=== PATIENT | male | born 1975 ===

== ENCOUNTER 2016-11-07 16:14 | Emergency (ER) | payer OTHER ==
[2016-11-07 16:21] VITALS: BMI 27.1
[2016-11-07] MEDS ORDERED: Morphine 4 mg/ml ISec IM STA (16:23)
[2016-11-07] MEDS ORDERED: Morphine 4 mg/ml ISec ONE (16:26)
[2016-11-07 16:30] VITALS: TEMP 98.5; O2SAT 100
--- NOTE | 2016-11-07 16:30 | ED PDOC ---
Arrival/HPI - General Chief Complaint: Groin Pain Time Seen by Provider: 11/07/16 16:15 Historian: Patient - History of Present Illness Narrative History of Present Illness (Text): 11/07/16 16:27 40 y/o male, no significant pmh, nkda, surgical history including hemorrhoidectomy, c/o lt. testicule pain and swelling started yesterday with no fall or trauma. Aching pain, swelling, painful to walk and standing, no numbness or tingling, no night sweat, no palpitation, was feeling nauseous when the pain is severe, no urinary symptoms, no night sweat, no urinary symptoms, no palpitation, no other medical or psychological complaints. Pt. stated that he has 5 sexual partners with occasionally no condoms for the past 12 months. Past Medical History - Provider Review Nursing Documentation Reviewed: Yes - Infectious Disease Hx of Infectious Diseases: None - Psychiatric Hx Substance Use: No - Surgical History Other/Comment: hemorrhoids removed. - Anesthesia Hx Anesthesia: Yes Hx Anesthesia Reactions: No Family/Social History - Physician Review Nursing Documentation Reviewed: Yes Family/Social History: Unknown Family HX Smoking Status: Light Smoker < 10 Cigarettes Daily Hx Alcohol Use: No Hx Substance Use: No Allergies/Home Meds Allergies/Adverse Reactions: Allergies shellfish derived Allergy (Verified 11/07/16 16:21) ANAPHYLAXIS Review of Systems - Review of Systems Constitutional: absent: Fatigue, Fevers Eyes: absent: Vision Changes ENT: absent: Hearing Changes Respiratory: absent: SOB, Cough Cardiovascular: absent: Chest Pain Gastrointestinal: absent: Abdominal Pain, Diarrhea, Nausea, Vomiting Musculoskeletal: absent: Arthralgias, Back Pain Skin: absent: Rash, Pruritis Neurological: absent: Headache, Dizziness Physical Exam Vital Signs Temp Pulse Resp BP Pulse Ox 11/07/16 16:29 98.5 F 92 H 18 146/94 H 100 - Systems Exam Head: Present: Atraumatic, Normocephalic Pupils: Present: PERRL Extroacular Muscles: Present: EOMI Conjunctiva: Present: Normal Mouth: Present: Moist Mucous Membranes Neck: Present: Normal Range of Motion Respiratory/Chest: Present: Clear to Auscultation, Good Air Exchange. No: Respiratory Distress, Accessory Muscle Use Cardiovascular: Present: Regular Rate and Rhythm, Normal S1, S2. No: Murmurs Abdomen: Present: Normal Bowel Sounds. No: Tenderness, Distention, Peritoneal Signs, Rebound, Guarding Genitourinary Male: Present: Normal External Genitalia, Testicle Tenderness ( left with swelling and saggy), Testicle Swelling (left with swelling and saggy) . No: Lesions, Penile Discharge, Penile Swelling, Erythema, Hernias Back: Present: Normal Inspection Upper Extremity: Present: Normal Inspection. No: Cyanosis, Edema Lower Extremity: Present: Normal Inspection. No: Edema Neurological: Present: GCS=15, CN II-XII Intact, Speech Normal Skin: Present: Warm, Dry, Normal Color. No: Rashes Psychiatric: Present: Alert, Oriented x 3, Normal Insight, Normal Concentration Medical Decision Making ED Course and Treatment: 11/07/16 16:29 -morphine 4mg IM -testicular sonogram -labs/IV 11/07/16 17:54 -Sonogram: -left epididymo-orchitis. -Small bilateral hydroceles. -Right-sided varicocele. -Case and treatment discussed with DR. Miramontes, he agreed on the treatment and dispo plan. -Pt. is very sexually active: rocephine 250mg IM, azithromycin 1gm po ordered. -labs/ua/gc/chlamydia test ordered. -Due to the patient's significant extensive sexual history, will put the patient on the doxy and cipro due to the fact there is leukocyte esterase in the urine and cover typical urine pathogen. 11/07/16 18:25 -Labs are non-significant except wbc 16.2, UA +leukocyte esterase, doxycyline and ciprofloxacin ordered. -I offered admission but the patient refused and declined to be admitted, request to have outpatient follow up with Dr. Cabrera. -I discussed the case with Dr. Krystal Cabrera including labs/radiology results, discussed about the plan of care and suggest the patient to call him madhavi after leave his office with him as he will see the patient tonight. -I discussed about the side effect of doxycyline and ciprofloxacin including possible achilles tendon rupture and should avoid gym/strenuous exercise or activities, pt. is awared and agreed to accept these risks. -Discharge home with doxycycline, ciprofloxacin (avoid gym and exercise while taking this medication), estela, call Dr. Krystal hendrickson on his cellphone as he will see you tonight, bed rest, avoid standing or running, follow up with your own pmd and urologist within 2 days, no sex for 1 week, return to the ER for any new or worsening signs or symptoms. - Lab Interpretations Lab Results: 11/07/16 17:30 11/07/16 17:30 Lab Results 11/07/16 17:30: Urine Color Yellow, Urine Appearance Sl cloudy, Urine pH 8.5, Ur Specific [place] 1.015, Urine Protein 30 H, Urine Glucose (UA) Negative, Urine Ketones Negative, Urine Blood Negative, Urine Nitrate Negative, Urine Bilirubin Negative, Urine Urobilinogen 0.2, Ur Leukocyte Esterase Trace H, Urine RBC Negative, Urine WBC 15 - 20, Ur Epithelial Cells 6 - 8, Urine Bacteria Mod 11/07/16 17:30: WBC 16.2 H, RBC 4.88, Hgb 13.4 L, Hct 39.2 L, MCV 80.3, MCH 27.5 , MCHC 34.2, RDW 13.5, Plt Count 242, MPV 9.8, Gran % 80.1 H, Lymph % (Auto) 9.7 L, [place] % (Auto) 9.9 H, Eos % (Auto) 0.2 L, Baso % (Auto) 0.1, Gran # 12.97 H, Lymph # 1.6, [place] # 1.6 H, Eos # 0.0, Baso # 0.01 11/07/16 17:30: Sodium 136, Potassium 3.8, Chloride 98, Carbon Dioxide 28, Anion Gap 14, BUN 17, Creatinine 0.7, Est GFR ( Amer) > 60, Est GFR (Non- Af Amer) > 60, Random Glucose 127 H, Calcium 9.0, Total Bilirubin 1.0, AST 35, ALT 34, Alkaline Phosphatase 106, Total Protein 8.5 H, Albumin 4.5, Globulin 4.0 , Albumin/Globulin Ratio 1.1 I have reviewed the lab results: Yes Interpretation: Abnormal lab values (wbc 16.2, UA +leukocyte esterase) - RAD Interpretation Radiology Orders: 11/07/16 16:23 TESTES DUPLEX COMPLETE [US] Stat HISTORY: lt. scrotum pain and swelling started yesterday TECHNIQUE: Realtime sonography through the scrotum with color and doppler flow. COMPARISON: None Available. FINDINGS: RIGHT TESTICLE: Measures 4.0 x 2.5 x 2.8 cm. Homogeneous echotexture. Blood flow is demonstrated. RIGHT EPIDIDYMIS: Unremarkable. LEFT TESTICLE: Measures 5.0 x 3.5 x 3.3 cm. Minimally heterogeneous echotexture. Hypervascular appearance. LEFT EPIDIDYMIS: Heterogeneous enlarged appearance. Hypervascularity. HYDROCELE: Small bilateral hydroceles. VARICOCELE: Right-sided varicocele. OTHER FINDINGS: None. IMPRESSION: Appearance consistent with left epididymo-orchitis. Correlate clinically. Small bilateral hydroceles. Right-sided varicocele. 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 - Medication Orders Current Medication Orders: Discontinued Medications Azithromycin (Zithromax) 1,000 mg PO STAT STA PRN Reason: Protocol Stop: 11/07/16 17:06 Last Admin: 11/07/16 17:36 Dose: 1,000 mg Ceftriaxone Sodium (Rocephin) 250 mg IM STAT STA PRN Reason: Protocol Stop: 11/07/16 17:06 Last Admin: 11/07/16 17:36 Dose: 250 mg IM Administration Charges Document 11/07/16 17:36 HI (Rec: 11/07/16 17:36 [facility] Injection Site MAR Injection Site Right Gluteus Gerry Charges for Administration # of IM Administrations 1 Ciprofloxacin (Cipro) 500 mg PO ONCE STA PRN Reason: Protocol Stop: 11/07/16 17:52 Last Admin: 11/07/16 18:14 Dose: 500 mg Doxycycline Hyclate (Doryx) 100 mg PO STAT STA PRN Reason: Protocol Stop: 11/07/16 17:52 Last Admin: 11/07/16 18:14 Dose: 100 mg Sodium Chloride (Sodium Chloride 0.9%) 1,000 mls @ 999 mls/hr IV .Q1H1M STA Stop: 11/07/16 18:06 Last Admin: 11/07/16 17:36 Dose: 999 mls/hr eMAR Start Stop Document 11/07/16 17:36 HI (Rec: 11/07/16 17:36 [facility] Intravenous Solution Start Date 11/07/16 Start Time 17:36 Ketorolac Tromethamine (Toradol) 30 mg IVP STAT STA Stop: 11/07/16 17:07 Last Admin: 11/07/16 17:36 Dose: 30 mg MAR Pain Assessment Document 11/07/16 17:36 HI (Rec: 11/07/16 17:36 [email or web address] Pain Reassessment Is this a pain reassessment? Yes Sleep Is patient sleeping during reassessment? No Presence of Pain Presence of Pain Yes Pain Scale Used Pain Scale Used Numeric Location Pain Location Body Site Groin Description Description Constant Pain Behavior Moaning Grasping Site Restlessness Facial Grimacing IVP Administration Document 11/07/16 17:36 HI (Rec: 11/07/16 17:36 [email or web address] Charges for Administration # of IVP Administrations 1 Morphine Sulfate (Morphine) 4 mg IM STAT STA Stop: 11/07/16 16:24 Last Admin: 11/07/16 16:30 Dose: 4 mg MAR Pain Assessment Document 11/07/16 16:30 HI (Rec: 11/07/16 16:30 [facility]) Pain Reassessment Is this a pain reassessment? No Sleep Is patient sleeping during reassessment? No Presence of Pain Presence of Pain Yes Pain Scale Used Pain Scale Used Numeric Location Left, Right or Bilateral Left Pain Location Body Site Groin Description Description Sharp Intensity of Pain at present 10 Pain Behavior Moaning Grasping Site Facial Grimacing Thrashing IM Administration Charges Document 11/07/16 16:30 HI (Rec: 11/07/16 16:30 [email or web address]) Injection Site MAR Injection Site Right Deltoid Charges for Administration # of IM Administrations 1 Re-Assess: MAR Pain Assessment Document 11/07/16 17:30 HI (Rec: 11/07/16 17:37 [email or web address]) Pain Reassessment Is this a pain reassessment? Yes Sleep Is patient sleeping during reassessment? No Presence of Pain Presence of Pain Yes Location Pain Location Body Site Groin - PA / QUALITY COMPLIANCE CONSULTANT / Resident Statement MD/DO has reviewed & agrees with the documentation as recorded. Disposition/Present on Arrival - Present on Arrival Any Indicators Present on Arrival: No History of DVT/PE: No History of Uncontrolled Diabetes: No Urinary Catheter: No History of Decub. Ulcer: No History Surgical Site Infection Following: None - Disposition Have Diagnosis and Disposition been Completed?: Yes Diagnosis: Varicocele, Hydrocele, Epididymo-orchitis, acute, UTI (urinary tract infection) Disposition: HOME/ ROUTINE Disposition Time: 17:59 Patient Plan: Discharge Patient Problems: Current Active Problems Problem Status Onset Epididymo-orchitis, acute Acute Hydrocele Acute UTI (urinary tract infection) Acute Varicocele Acute Condition: IMPROVED Additional Instructions: -Discharge home with doxycycline, ciprofloxacin (avoid gym and exercise while taking this medication), motrin, call Dr. Krystal hendrickson on his cellphone as he will see you madhavi, bed rest, avoid standing or running, follow up with your own pmd and urologist within 2 days, no sex for 1 week, return to the ER for any new or worsening signs or symptoms. Prescriptions: Ciprofloxacin/Ciprofloxa HCl [Ciprofloxacin] 500 mg PO BID #20 tab Doxycycline Hyclate 100 mg PO BID #16 cap Ibuprofen [Motrin Tab] 800 mg PO TID PRN #21 tab PRN Reason: Other Referrals: Haley Szymanski, [Primary Care Provider] - Follow up with primary Rosalio Cabrera MD [Staff Provider] - Follow up with primary Forms: [facility] [employer] [facility] (Wallisian), WORK NOTE
[2016-11-07] MEDS ORDERED: cefTRIAXone (Rocephin) 250 mg Inj IM STA (17:05)
[2016-11-07] MEDS ORDERED: Sodium Chloride 0.9% 1,000 ML IV STA (17:06)
--- NOTE | 2016-11-07 17:10 | US ---
HISTORY: lt. scrotum pain and swelling started yesterday TECHNIQUE: Realtime sonography through the scrotum with color and doppler flow. COMPARISON: None Available. FINDINGS: RIGHT TESTICLE: Measures 4.0 x 2.5 x 2.8 cm. Homogeneous echotexture. Blood flow is demonstrated. RIGHT EPIDIDYMIS: Unremarkable. LEFT TESTICLE: Measures 5.0 x 3.5 x 3.3 cm. Minimally heterogeneous echotexture. Hypervascular appearance. LEFT EPIDIDYMIS: Heterogeneous enlarged appearance. Hypervascularity. HYDROCELE: Small bilateral hydroceles. VARICOCELE: Right-sided varicocele. OTHER FINDINGS: None. IMPRESSION: Appearance consistent with left epididymo-orchitis. Correlate clinically. Small bilateral hydroceles. Right-sided varicocele.
[2016-11-07 17:45] LABS: PH,URINE 8.5 (4.7-8.0); URINE BILIRUBIN NEGATIVE (NEGATIVE); URINE BLOOD NEGATIVE (NEGATIVE); URINE GLUCOSE (UA) NEGATIVE (NEGATIVE); URINE KETONE NEGATIVE (NEGATIVE); URINE LEUKOCYTE ESTERASE TRACE Leu/uL (NEGATIVE); URINE PROTEIN 30 mg/dL (<30 mg/dL); URINE UROBILINOGEN 0.2 E.U./dL (<1 E.U./dL)
[2016-11-07 17:52] LABS: BASO # 0.01 K/mm3 (0.0-2.0); BASO % 0.1 % (0.0-3.0); EOS % 0.2 % (1.5-5.0); GRAN # 12.97 (1.4-6.5); GRAN % 80.1 % (50.0-68.0); HEMATOCRIT 39.2 % (42.0-52.0); LYMPH # 1.6 (1.2-3.4); LYMPH % 9.7 % (22.0-35.0); MEAN CELL VOLUME 80.3 fl (80.0-105.0); MEAN CORPUSCULAR HEMOGLOBIN 27.5 pg (25.0-35.0); MEAN CORPUSCULAR HGB CONC 34.2 g/dl (31.0-37.0); MEAN PLATELET VOLUME 9.8 fl (7.0-11.0); MONO # 1.6 (0.1-0.6); MONO % 9.9 % (1.0-6.0); RED CELL DISTRIBUTION WIDTH 13.5 % (11.5-14.5); URINE APPEARANCE SL CLOUDY (CLEAR); URINE COLOR YELLOW (YELLOW); WHITE BLOOD COUNT 16.2 10^3/ul (4.5-11.0)
[2016-11-07 17:56] LABS: ALB/GLOB RATIO 1.1 (1.1-1.8); ALKALINE PHOSPHATASE 106 U/L (38-126); ALT/SGPT 34 U/L (7-56); AST/SGOT 35 U/L (17-59); BLOOD UREA NITROGEN 17 mg/dL (7-21); CARBON DIOXIDE 28 mmol/L (21-33); CHLORIDE 98 mmol/L (98-107); GFR AFRICAN-AMERICAN > 60; GLUCOSE,RANDOM 127 mg/dL (70-110); POTASSIUM 3.8 mmol/L (3.6-5.0); SODIUM 136 mmol/L (132-148); TOTAL PROTEIN 8.5 g/dL (5.8-8.3)
[2016-11-07 18:21] LABS: URINE BACTERIA MOD (NEG); URINE RBC NEGATIVE /hpf (0-2); URINE WBC 15 - 20 /hpf (0-6)
[2016-11-07 19:09] VITALS: BP 139/89; PULSE 89; RESP 16
== END 2016-11-07 18:31 | disposition home or self-care (01) ==
LOC: ED 16:14
DX: I86.1 Scrotal varices (principal); N43.3 Hydrocele, unspecified; N45.3 Epididymo-orchitis; N39.0 Urinary tract infection, site not specified
CPT/HCPCS: 80053; 81001; 85025; 87086; 87491; 87591; 93975; 96372; 96374; 99283; J0696; J1885; J2270; J7040